=== PATIENT | male | born 1955 | race American Indian/Alaskan Native ===

== ENCOUNTER 2016-04-17 15:42 | Emergency (ER) | payer SELFPAY ==
[2016-04-17 16:08] VITALS: BP 148/107
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
== END 2016-04-17 16:30 | disposition home or self-care (01) ==
LOC: ED 15:42
DX: T14.8 Other injury of unspecified body region (principal); F17.200 Nicotine dependence, unspecified, uncomplicated; V49.49XA Driver injured in collision with other motor vehicles in traffic accident, initial encounter; Y93.9 Activity, unspecified; Y92.9 Unspecified place or not applicable; Y99.9 Unspecified external cause status
CPT/HCPCS: 99282